=== PATIENT | female | born 1990 ===

== ENCOUNTER 2019-04-26 11:45 | Inpatient (IN) | payer OTHER ==
[~2019-04-26] VITALS: Ht 154.9 cm; Wt 92.5 kg
[2019-05-03] MEDS ORDERED: IBU600 MG PO (05:52)
[2019-05-03] MEDS ORDERED: OXYC1TAB9 PO (05:52)
== END 2019-05-03 11:44 | disposition home or self-care (01) | DRG 743 ==
LOC: ADM 11:45 → EDSTATUS 11:45 → OB/GYN 05-01 06:35 → O/R 05-01 06:35 → SURH 05-01 07:00 → OB/GYN 05-01 13:33
PROVIDERS: ADMIT Obstetrics & Gynecology Gynecology
PROC: 0UT70ZZ Resection of Bilateral Fallopian Tubes, Open Approach (ICD-10-PCS; 2019-05-01)
PROC: 0UT90ZZ Resection of Uterus, Open Approach (ICD-10-PCS; principal; 2019-05-01 07:00)
DX: D25.1 Intramural leiomyoma of uterus (principal); D25.0 Submucous leiomyoma of uterus; N72 Inflammatory disease of cervix uteri; N92.0 Excessive and frequent menstruation with regular cycle